=== PATIENT | female | born 1950 | race Caucasian/White ===

== ENCOUNTER 2016-09-17 14:36 | Emergency (ER) | payer OTHER ==
[~2016-09-17] VITALS: Ht 170.2 cm; Wt 90.7 kg
[2016-09-17 14:54] VITALS: BP 168/107
== END 2016-09-17 19:54 | disposition left against medical advice (07) ==
LOC: ER 14:36
DX: H54.61 Unqualified visual loss, right eye, normal vision left eye (principal); Z53.21 Procedure and treatment not carried out due to patient leaving prior to being seen by health care provider